=== PATIENT | female | born 1960 | race Caucasian/White ===

== ENCOUNTER → 2024-01-02 10:12 | Outpatient (REF) | payer BC, SELFPAY | LOC: HWRAD 10:12 | PROVIDERS: ATTENDING PHYSICIAN Internal Medicine Endocrinology, Diabetes & Metabolism; FAMILY PHYSICIAN Nurse Practitioner Family | DX: E04.1 Nontoxic single thyroid nodule (principal) | CPT/HCPCS: 76536 ==

== ENCOUNTER → 2024-08-02 08:53 | Outpatient (REF) | payer BC, SELFPAY | LOC: HWWDC 08:53 | PROVIDERS: ATTENDING PHYSICIAN Internal Medicine Critical Care Medicine; FAMILY PHYSICIAN Nurse Practitioner Family | DX: Z12.31 Encounter for screening mammogram for malignant neoplasm of breast (principal); R05.3 Chronic cough (principal) | CPT/HCPCS: 71250; 77063; 77067 ==

== ENCOUNTER → 2024-11-16 09:01 | Outpatient (REF) | payer BC, SELFPAY | LOC: HWRAD 09:01 | PROVIDERS: ATTENDING PHYSICIAN Internal Medicine Endocrinology, Diabetes & Metabolism; FAMILY PHYSICIAN Nurse Practitioner Family | DX: E04.2 Nontoxic multinodular goiter (principal) | CPT/HCPCS: 76536 ==

== ENCOUNTER 2025-05-26 17:31 | Inpatient (IN) | payer BC, SELFPAY ==
[2025-05-26 12:51] VITALS: BP 129/93
[2025-05-26 13:26] LABS: Glucose - Point of Care 149 mg/dl (70-99)
--- NOTE | 2025-05-26 13:28 | ED.GENMED ---
History of Present Illness
General
Chief Complaint: Dehydration Symptoms
Source: patient
Exam Limitations: none
Time Seen by Provider: 05/26/25 13:17
History of Present Illness
History of Present Illness:
65yoF with a history of hyperlipidemia, hypothyroidism, and chronic cough presenting with her for evaluation of vomiting. Patient started Zepbound about 1.5 weeks ago for weight loss. She took her 2nd dose 3 days ago. She started with
nausea and vomiting yesterday and has been vomiting persistently since then. She has been unable to keep down any PO fluids/solids and feels very dehydrated. Patient is having some burning pain in her chest and feels short of breath. She started
to experience tingling in both of her arms when she arrived to the ED. She denies any fevers or diarrhea.
Phy Exam
Physical Exam
Physical Exam:
Hyperventilating, anxious
General Physical Exam
General Presentation: mild distress
General Skin: warm and dry
General Habitus: normal
General Mental: alert
ENT Exam
ENT Exam: normocephalic
Cardiovascular Exam
Cardiovascular Exam: tachycardia
Pulmonary Exam
Pulmonary Exam: lungs clear, no respiratory distress, no rales, no crackles, no rhonchi and no wheezing
Gastrointestinal Exam
Gastrointestinal Exam: non tender, soft and non distended
Neurological Exam
Neurological Exam: alert
[place] Coma Scale
Eye Opening: Spontaneous
Verbal Response: Oriented
Motor Response: Obeys Commands
GCS Total Score: 15
Skin Exam
Skin Exam: normal color and warm/dry
Psychiatric Exam
Psychiatric Exam: anxious
Course
Orders/Labs/Results
Orders:
Orders
05/26/25 13:26
Electrocardiogram (*1) Urgent
Reason for Study: Shortness of Breath
EKG- Treatment ONCE
0.9% Sodium Chloride 1000 ml [Nss] 1,000 ml IV BOLUS
Ondansetron Injectable [Zofran] 4 mg IV NOW STA
CR Chest - 2 Views Urgent
Comment:
Reason For Exam: SOB
05/26/25 13:48
Complete Blood Count/With Diff Urgent
Comprehensive Metabolic Panel Urgent
Lipase Urgent
Magnesium Urgent
Troponin I Urgent
Venous Blood Gas Urgent
%Oxygen/Room Air: room air
05/26/25 13:49
Lactate Level [Lactic Acid] Urgent
05/26/25 14:22
Prochlorperazine [Compazine] 10 mg IV NOW STA
05/26/25 14:39
0.9% Sodium Chloride 1000 ml [Nss] 1,000 ml IV BOLUS
Abnormal Lab Results
05/26/25 05/26/25 05/26/25
13:48 13:49
WBC 11.6 H 10^3/uL
(4.8-10.8)
Hgb 16.1 H g/dL
(12.0-16.0)
MPV 11.6 H fL
(7.4-10.4)
Absolute Neuts (auto) 9.4 H 10^3/uL
(1.4-6.5)
Absolute Lymphs (auto) 1.1 L 10^3/uL
(1.2-3.4)
Absolute Monos (auto) 0.9 H 10^3/uL
(0.1-0.6)
Neutrophils % 81.7 H %
(42.2-75.2)
Lymphocytes % 9.6 L %
(20.5-51.1)
VBG pCO2 20 L mmHg
(35-48)
VBG HCO3 11.6 L mmol/L
(22-27)
Carbon Dioxide 7 L* mmol/L
(22-30)
Creatinine 1.1 H mg/dL
(0.6-1.0)
Glucose 162 H mg/dl
(70-99)
Lactic Acid 3.6 H mmol/L
(0.7-2.0)
Calcium 11.8 H mg/dl
(8.4-10.2)
Total Protein 9.7 H g/dl
(6.3-8.2)
Albumin 6.0 H g/dl
(3.5-5.0)
POC Glucose 149 H mg/dl
(70-99)
05/26/25 13:48
05/26/25 13:48
Vital Signs
Initial and Last Documented VS:
Initial Vital Signs
Temp Pulse Resp BP Pulse Ox
98.2 F 133 20 129/93 99
05/26/25 12:51 05/26/25 12:51 05/26/25 12:51 05/26/25 12:51 05/26/25 12:51
Last Documented Vital Signs
Temp Pulse Resp BP Pulse Ox
98.2 F 110 23 157/94 99
05/26/25 12:51 05/26/25 14:35 05/26/25 14:30 05/26/25 14:10 05/26/25 13:30
MDM/Problems Addressed
Differential Diagnosis Includes:
65yoF here with vomiting x 24 hours. Recently started on Zepbound. HR 133 in triage and she is hyperventilating during initial exam. Abdominal exam is benign. Differential diagnosis includes but is not limited to: gastroenteritis, pancreatitis,
medication side effect, dehydration
Initial ED plan: Check abdominal labs, lactate, VBG, troponin/EKG, and CXR. IV Zofran and fluid bolus.
*Pulse Oximetry
SaO2: 99
Oxygen Mode of Delivery: Room air
Patient hypoxic: no (99%)
*EKG
Interpreted by ED Provider?: Yes
EKG Intrepretation Date: 05/26/25
Heart Rate: 109
Rate: tachycardiac
Rhythm: sinus
[place]: normal axis
Interval: normal interval
QRS Pattern: normal QRS
Ischemia: non-specific ST changes (inferolateral leads)
*Critical Care Note
Total Time (30-74mins, 75-104mins- exclusive of procedures): Not Applicable
Update Note
Update Note:
Labs reveal a severe metabolic acidosis with a bicarb of 7. Venous pH is normal. Lactate 3.6. EKG shows ST depressions in inferolateral leads although troponin is normal. Chest x-ray clear. Additional fluid bolus ordered and patient admitted
for further management.
ED Attending Note
-
Portions of this chart may have been created with voice recognition software.� Occasional wrong word or��sound alike� substitutions may have occurred due to the inherent limitations of voice recognition software.
Discharge Plan
Departure
Patient Disposition: Admit
Date of Disposition: 05/26/25
Time of Disposition: 14:56
Presentation/result/management discussed w/ accepting MD/DO: Hospitalist
Discharge Problem:
High anion gap metabolic acidosis, Nausea and vomiting
Prescriptions:
No Action
rosuvastatin 20 MG tablet
20 mg PO QPM
levothyroxine [Synthroid] 25 mcg Tablet
25 mcg PO DAILY
amitriptyline 10 mg Tablet
10 mg PO HS
gabapentin 300 mg Capsule
300 mg PO TID
Referrals:
Pasquale Escamilla CRNP [Family Provider, Family Practice]
Interventions
Interventions:
*Risk Screen - Suicide Last Done: 05/26/25 14:35
*General Assessment Last Done: 05/26/25 12:51
*Neglect/Abuse Screening Last Done: 05/26/25 14:35
*ED- Fall Risk Assessment Last Done: 05/26/25 14:35
*ED COVID-19 Vaccine History Last Done: 05/26/25 14:35
Discharge Date and Time
Print Language: CITIZEN OF [place]
[2025-05-26] MEDS: NSS 1000 IV ×2 (13:30→15:54)
[2025-05-26] MEDS: ZOFRAN 4 MG IV (13:50)
[2025-05-26 14:09] LABS: Hematocrit 46.5 % (37.0-47.0); Hemoglobin 16.1 g/dL (12.0-16.0); Mean Corp Hgb Conc. 34.6 g/dL (33.0-37.0); Mean Corpuscular Volume 86.4 fL (81.0-99.0); Nucleated Red Blood Cells % 0 %; Platelet Count 309 10^3/uL (130-400); Red Cell Dist. Width 14.0 % (11.5-14.5)
[2025-05-26 14:10] VITALS: BP 157/94
[2025-05-26 14:11] LABS: Venous Blood Gas B.E. -10.8 mmol/L (-4 to +4); Venous Blood Gas O2 Sat % 83.5 %
[2025-05-26] MEDS: COMPAZINE 10 MG IV (14:31)
[2025-05-26 14:33] VITALS: BMI 22.2
[2025-05-26 14:38] LABS: ALT (SGPT) 18 U/L (0-35); AST (SGOT) 21 U/L (14-36); Albumin 6.0 g/dl (3.5-5.0); Alkaline Phosphatase 94 U/L (38-126); Blood Urea Nitrogen 16 mg/dl (7-17); Calcium 11.8 mg/dl (8.4-10.2); Carbon Dioxide 7 mmol/L (22-30); Chloride 105 mmol/L (98-107); Estimated Creatinine Clearance 41 ml/min; Glucose 162 mg/dl (70-99); Lipase 223 U/L (23-300); Magnesium 2.1 mg/dl (1.6-2.3); Potassium 4.4 mmol/L (3.5-5.1); Sodium 145 mmol/L (135-145); Total Protein 9.7 g/dl (6.3-8.2); eGFR 56.11
[2025-05-26 14:39] LABS: Troponin I < 0.012 ng/ml
--- NOTE | 2025-05-26 15:47 | HPS.HSE ---
Addendum entered and electronically signed by Kate Oliveira MD 05/26/25 16:39:
Results of arterial blood gas reviewed--by way of the Espinosa Hesselbach equation, expected pH should be 7.09--therefore, volume contraction with metabolic alkalosis fits the picture as measured arterial pH is 7.34
Original Note:
Family Physician
-
Family Physician: LITZY Castellon
Chief Complaint
-
Nausea and vomiting
History of Present Illness
Patient is a 65-year-old female who comes to the emergency room with complaints of being 'dehydrated'. She had previously been on Zepbound 2.5 mg for 8 weeks for weight loss without any issues. She then got changed to 5 mg and had her second dose
of the 5 mg on this past , May 23, 2025. She stated that on Tuesday she started with some nausea and mild vomiting but then all day Tuesday had significant nausea, vomiting but no diarrhea. She became dizzy when she tried to get up and
also developed muscle cramps. She admits to chills but no fevers. She denies any diarrhea. She denies any abdominal pain. She denies any alcohol intake. Workup found her to be profoundly acidotic with a bicarbonate of 7 and anion gap of 33 with
elevated calcium of 11.8 and lactic acidosis of 3.6. Etiology of her acidosis is unclear. Patient is being admitted.
Medical History
Past Medical History
Past Medical History: Reports Other
Additional Past Medical History:
Hyperlipidemia
Hypothyroid with thyroid nodule
Chronic cough
Past Surgical History: Reports None
Social History
Tobacco: Non-smoker
Alcohol: None
Drug: None
Personal:
Living: With Family
Family History
Family History: Not pertinent
Allergies / Home Medications
Allergies reflects when Allergies were last updated in [facility].
Home Medications with original date entered in [facility]
Allergy/Medication List:
Allergies
Allergy/AdvReac Type Severity Reaction Status Date / Time
No Known Allergies Allergy Verified 05/26/25 12:51
Home Medications
rosuvastatin 20 mg tablet 20 mg PO QPM 06/08/21
amitriptyline 10 mg tablet 10 mg PO HS 05/26/25
gabapentin 300 mg capsule 300 mg PO TID 05/26/25
levothyroxine 25 mcg tablet (Synthroid) 25 mcg PO DAILY 05/26/25
Review of Systems
-
History Source: Patient
Constitutional: Reports Chills; Denies Fever
EENT: Reports No Symptoms
Respiratory: Reports Cough (Chronic cough which is much improved with amitriptyline and gabapentin)
Cardiac: Reports Chest Pain (Describes as a burning pain in the center of her chest nonradiating)
Abdomen/GI: Reports Nausea, Vomiting, Constipated and Other (No hematemesis); Denies Abdominal Pain, Diarrhea or Bloody Stools
: Reports No Symptoms and Other (She thought that her urine output was decreased)
Musculoskeletal: Reports Muscle Pain
Skin: Reports No Symptoms
Neurological: Reports Dizzy (With getting up)
Endocrine: Reports No Symptoms
Hematologic/Lymphatic: Reports No Symptoms
Psych: Reports No Symptoms
Physical Exam
Vital Signs
Vital Signs
Temp Pulse Resp BP Pulse Ox
98.2 F 110 23 157/94 99
05/26/25 12:51 05/26/25 14:35 05/26/25 14:30 05/26/25 14:10 05/26/25 13:30
Physical Exam
General: Well Developed and Well Nourished; No No Apparent Distress (Appears pale and acutely ill--having nausea and dry heaves)
HEENT: NormoCephalic, Anicteric and Atraumatic; No Oxygen
Respiratory: Clear; No Wheezes, Rales, Rhonchi or Crackles
Cardiac: S1/S2, Regular Rhythm and Tachycardia
GI: Soft, Non Tender, Non Distended and Normal Bowel Sounds
Musculoskeletal: No Clubbing, No Cyanosis and No Edema
Skin: Warm
Neuro: Awake, Alert and Nonfocal/grossly intact
Psych: Calm
Laboratory Results
-
05/26/25 13:48
05/26/25 13:48
Laboratory Results
Lactic Acid 3.6 mmol/L (0.7-2.0) H 05/26/25 13:49
Total Bilirubin 1.1 mg/dl (0.2-1.3) 05/26/25 13:48
AST 21 U/L (14-36) 05/26/25 13:48
ALT 18 U/L (0-35) 05/26/25 13:48
Alkaline Phosphatase 94 U/L (38-126) 05/26/25 13:48
Troponin I < 0.012 ng/ml 05/26/25 13:48
Lipase 223 U/L (23-300) 05/26/25 13:48
Impression/Plan
-
Patient is a 65-year-old female
Nausea/vomiting--nausea and vomiting could certainly be due to the increased dose of Zepbound--in addition, patient should be alkalotic due to volume contraction from vomiting HCl alejandro without diarrhea--ADMIT--continue IV fluids with bicarb, PPI,
antiemetics--will check lipase although patient does not complain of significant abdominal pain
Anion gap metabolic acidosis--anion gap 33--Zepbound can cause euglycemic starvation ketoacidosis--venous blood gas of no utility--will obtain arterial blood gas--patient denies any ingestions and does not drink alcohol, patient states she take
Zepbound for weight loss and not diabetes, no obvious source of infection to point toward sepsis--will check urine and serum osmolality, will check serum salicylates, acetaminophen levels, beta hydroxybutyrate and urine ketones
Hypercalcemia/elevated total protein--may certainly be a function of dehydration although creatinine is not significantly elevated and BUN is normal--will hydrate and reevaluate--consideration for multiple myeloma if numbers do not improve
Hyperlipidemia--hold rosuvastatin secondary to vomiting
Hypothyroid with thyroid nodules--check TSH with free T4
Chronic cough--patient states she is prescribed amitriptyline and gabapentin for this which has worked--unclear what the diagnosis is--she denies reflux--hold meds due to NPO status
DVT proph--SC lovenox
CODE STATUS--full code
[2025-05-26 16:00] VITALS: BP 140/77
[2025-05-26 16:21] LABS: B.E. -10.8 mmol/L; O2 Saturation % 98.8 % (94-98); PCO2 24 mmHg (32-35); PO2 104 mmHg (83-108)
[2025-05-26 16:22] LABS: HCO3 12.9 mmol/L (21-28)
[2025-05-26 16:51] LABS: Acetaminophen < 10 ug/ml (10-30); Salicylate < 1.0 mg/dl (2.0-20.0)
[2025-05-26 17:08] LABS: Urine Character Slightly Cloudy (Clear)
[2025-05-26 17:14] LABS: Urine Squamous Cell 26-30 /LPF (Few)
[2025-05-26 17:15] LABS: Urine White Cell 30-40 /HPF (0-5)
[2025-05-26 17:16] LABS: TSH 1.36 uIU/ml (0.47-4.68)
[2025-05-26 17:47] VITALS: BP 147/85
[2025-05-26 17:48] VITALS: BMI 22.3
[2025-05-26 18:38] LABS: Glucose - Point of Care 115 mg/dl (70-99)
[2025-05-26] MEDS: NSS (PRESERVATIVE FREE) 10 ML IV (18:46)
[2025-05-26] MEDS: PROTONIX IV 40 MG IV (18:47)
[2025-05-26] MEDS: SODIUM BICARBONATE 1150 MEQ IV (18:57)
[2025-05-26 19:44] VITALS: BP 121/78
[2025-05-26] MEDS: LOVENOX 40 MG SC (20:16)
[2025-05-26 23:33] VITALS: BP 118/79
[2025-05-26 23:44] LABS: Glucose - Point of Care 106 mg/dl (70-99)
[2025-05-27] MEDS: BENADRYL 25 MG IV (00:02)
[2025-05-27] MEDS: ANESTHETIC LOZENGE 1 LOZENGE PO (01:15)
[2025-05-27 03:26] VITALS: BP 136/80
[2025-05-27 05:53] LABS: Glucose - Point of Care 106 mg/dl (70-99)
[2025-05-27 07:41] LABS: Hematocrit 38.2 % (37.0-47.0); Hemoglobin 13.1 g/dL (12.0-16.0); Mean Corp Hgb Conc. 34.3 g/dL (33.0-37.0); Mean Corpuscular Volume 86.6 fL (81.0-99.0); Nucleated Red Blood Cells % 0 %; Platelet Count 215 10^3/uL (130-400); Red Cell Dist. Width 14.2 % (11.5-14.5)
[2025-05-27] MEDS: PROTONIX IV 40 MG IV (07:41)
[2025-05-27] MEDS: NSS (PRESERVATIVE FREE) 10 ML IV (07:41)
[2025-05-27 07:45] VITALS: BP 121/71
[2025-05-27 07:57] LABS: Glycohemoglobin (HgbA1c) 5.3 % (4.0-5.6)
[2025-05-27] MEDS: ZOFRAN 4 MG IV ×3 (09:45→23:53)
[2025-05-27 11:01] VITALS: BP 124/68
[2025-05-27] MEDS: SODIUM BICARBONATE 1150 MEQ IV (11:15)
[2025-05-27 11:21] LABS: ALT (SGPT) 14 U/L (0-35); AST (SGOT) 18 U/L (14-36); Albumin 4.4 g/dl (3.5-5.0); Alkaline Phosphatase 67 U/L (38-126); Blood Urea Nitrogen 16 mg/dl (7-17); Calcium 10.1 mg/dl (8.4-10.2); Chloride 113 mmol/L (98-107); Estimated Creatinine Clearance 75 ml/min; Glucose 110 mg/dl (70-99); Magnesium 2.1 mg/dl (1.6-2.3); Potassium 3.4 mmol/L (3.5-5.1); Sodium 141 mmol/L (135-145); Total Protein 6.9 g/dl (6.3-8.2); eGFR > 60.00
[2025-05-27 11:23] LABS: Carbon Dioxide 13 mmol/L (22-30)
[2025-05-27 11:41] LABS: Glucose - Point of Care 92 mg/dl (70-99)
--- NOTE | 2025-05-27 14:41 | CM ---
Patient seen at bedside on with physicians and patient . Patient states that she lives with her in a condo with an elevator to access. Patient stated that her PCP is Dr. Escamilla and Patient uses the [facility] in
[place]. Patient stated that she does not have any DME and that she does not have any other needs that she anticipates. Patient plan is for discharge home with no needs at this time. CM will continue to follow for discharge planning needs.
Plan; home with family supports.
--- NOTE | 2025-05-27 15:04 | W.PN.HOSP.TC ---
Addendum entered and electronically signed by Kate Oliveira MD 05/27/25 17:04:
I saw and evaluated the patient independently. I reviewed the resident�s note and agree with findings and plan as documented by Dr. Fernandes.
GENERAL: well developed, well nourished, female in no apparent distress--looks better than admission
HEENT: NC/AT
HEART: regular rate and rhythm, +S1, +S2
LUNGS : clear to auscultation bilaterally
ABDOM: soft, nontender, nondistended, + bowel sounds
EXT: no cyanosis, clubbing, or edema
NEUROLOGIC: grossly intact
Nausea/vomiting--likely due to the increased dose of Zepbound--in addition, patient should be alkalotic due to volume contraction from vomiting HCl alejandro without diarrhea--continue IV fluids with bicarb, PPI, antiemetics--lipase WNL --advance diet to
clears
Anion gap metabolic acidosis--anion gap 33 now down to 15--Zepbound can cause euglycemic starvation ketoacidosis plus lactic acidosis also present-- arterial blood gas indicates resp alkalosis and pt with mixed acid base disorder (met acidosis, resp
alk, met alk)-- takes Zepbound for weight loss and not diabetes, no obvious source of infection to point toward sepsis-- salicylate acetaminophen levels negative, beta hydroxybutyrate and urine ketones both positive--cont IVF with bicarb--lactic
acid within normal limits
Hypercalcemia/elevated total protein--may certainly be a function of dehydration although creatinine is not significantly elevated and BUN is normal--will hydrate and reevaluate--calcium much improved
hypokalemia--replete
Hyperlipidemia--hold rosuvastatin secondary to vomiting
Hypothyroid with thyroid nodules-- TSH with free T4 WNL
Chronic cough--patient states she is prescribed amitriptyline and gabapentin for this which has worked---restart meds
DVT proph--SC lovenox
CODE STATUS--full code
Original Note:
Today's Communication/Plan
-
Restarted gabapentin 300mg TID
Restarted amitriptyline 10mg
Start clear liquid diet
Assessment / Plan
Assessment / Plan
Patient is a 65-year-old female with a history of hyperlipidemia, hypothyroidism with a thyroid nodule, and chronic cough who presented with emesis, nausea, and dizziness and found to have a mixed metabolic acidosis with metabolic alkalosis and
respiratory alkalosis. She had previously been on Zepbound 2.5 mg for 8 weeks for weight loss without any issues. She then got changed to 5 mg and had her second dose of the 5 mg on this past 05/23/25.
#Emesis
#Metabolic acidosis with metabolic alkalosis and compensatory respiratory alkalosis
anion gap 33
Zepbound can cause euglycemic starvation ketoacidosis
Emesis leads to metabolic alkalosis
Labs show compensatory respiratory alkalosis
Negative salicylates
acetaminophen wnl
UA significant for ketonuria
IVF
clear liquid diet
ppi
Zofran PRN
#Hypercalcemia resolved
initially elevated but trended down
#Hyperlipidemia
Crestor on hold
#Hypothyroid
TSH 1.3 wnl
T41.7 wnl
home med levothyroxine 25ug QD on hold
#Chronic cough
Restart amitriptyline 10mg
Restart gabapentin 300mg TID
GI PPx
Protonix IV
DVT ppx
SCD
Lovenox
CODE STATUS
Full code
Anticipated Discharge: > 48 hours
Subjective/Interval History
-
Patient is feeling better today. She does still have episodes of nausea such as this AM when she was using an ice ship. However did not have episodes of emesis. Still reports a burning sensation in her throat not alleviated by lozenges.
Date of Service: May 27, 2025
Objective Data
-
Labs:
Laboratory Results
05/27/25
06:40
WBC 8.2
Hgb 13.1
Hct 38.2
Plt Count 215 D
Sodium 141
Potassium 3.4 L
Chloride 113 H
Carbon Dioxide 13 L*
BUN 16
Creatinine 0.6
Glucose 110 H
Calcium 10.1
Total Bilirubin 0.8
AST 18
ALT 14
Alkaline Phosphatase 67
Vital Signs:
Vital Signs
Temp Pulse Resp BP Pulse Ox
98.6 F 95 16 124/68 96
05/27/25 11:01 05/27/25 11:01 05/27/25 11:01 05/27/25 11:01 05/27/25 11:01
I&O
05/26/25 05/27/25 05/28/25
06:59 06:59 06:59
Intake Total 0 / 0 600 / 600
Balance 0 / 0 600 / 600
Review of Systems
-
History Source: Patient
Constitutional: Reports No Symptoms; Denies Fever
EENT: Reports No Symptoms Reported
Respiratory: Reports No Symptoms; Denies Cough or Hemoptysis
Cardiac: Reports No Symptoms; Denies Chest Pain or Diaphoresis
Abdomen/GI: Reports Nausea; Denies Abdominal Pain, Vomiting or Diarrhea
Genitourinary: Reports No Symptoms
Skin: Reports No Symptoms and Rash
Neuro: Reports No Symptoms; Denies Dizzy or Lightheadedness
Physical Exam
-
General: Well Developed, Well Nourished and Comfortable
HEENT: Normocephalic and Atraumatic
Respiratory: Clear to Auscultation; Negative Wheezes or Rales
Cardiac: Regular Rhythm and S1/S2; Negative Murmur
GI: Soft, Nontender and Nondistended
Musculoskeletal: No Clubbing and No Edema
Neuro: Awake, Alert and Oriented
[2025-05-27 15:20] VITALS: BP 135/73
[2025-05-27] MEDS: NEURONTIN PO ×3 (15:28→22:42)
[2025-05-27 16:36] LABS: Glucose - Point of Care 92 mg/dl (70-99)
[2025-05-27] MEDS: LOVENOX 40 MG SC (17:12)
[2025-05-27] MEDS: TORADOL 15 MG IV (18:34)
[2025-05-27 19:00] VITALS: BP 116/64
[2025-05-27] MEDS: KCL 520 MEQ IV (19:54)
[2025-05-27] MEDS: ELAVIL PO ×2 (22:33→23:58)
[2025-05-27 23:05] VITALS: BP 111/64
[2025-05-27 23:53] LABS: Glucose - Point of Care 88 mg/dl (70-99)
[2025-05-28] MEDS: SODIUM BICARBONATE 1150 MEQ IV (02:21)
[2025-05-28 03:34] VITALS: BP 109/59
[2025-05-28 07:00] VITALS: BP 121/66
[2025-05-28 07:52] LABS: Hematocrit 31.4 % (37.0-47.0); Hemoglobin 10.8 g/dL (12.0-16.0); Mean Corp Hgb Conc. 34.4 g/dL (33.0-37.0); Mean Corpuscular Volume 87.0 fL (81.0-99.0); Platelet Count 175 10^3/uL (130-400); Red Cell Dist. Width 14.1 % (11.5-14.5)
[2025-05-28 07:53] LABS: Glucose - Point of Care 91 mg/dl (70-99)
[2025-05-28] MEDS: NEURONTIN PO (08:18)
[2025-05-28] MEDS: PROTONIX IV 40 MG IV (08:23)
[2025-05-28] MEDS: NSS (PRESERVATIVE FREE) 10 ML IV (08:23)
[2025-05-28 08:26] LABS: Blood Urea Nitrogen 16 mg/dl (7-17); Calcium 8.9 mg/dl (8.4-10.2); Carbon Dioxide 28 mmol/L (22-30); Chloride 103 mmol/L (98-107); Estimated Creatinine Clearance 75 ml/min; Glucose 88 mg/dl (70-99); Potassium 2.8 mmol/L (3.5-5.1); Sodium 141 mmol/L (135-145); eGFR > 60.00
[2025-05-28] MEDS: KCL 270 MEQ IV ×2 (09:04→16:26)
--- NOTE | 2025-05-28 09:43 | W.PN.HOSP.TC ---
Addendum entered and electronically signed by Kate Oliveira MD 05/28/25 17:06:
I saw and evaluated the patient independently. I reviewed the resident�s note and agree with findings and plan as documented by Dr. Fernandes.
GENERAL: well developed, well nourished, female in no apparent distress--looks better than admission
HEENT: NC/AT
HEART: regular rate and rhythm, +S1, +S2
LUNGS : clear to auscultation bilaterally
ABDOM: soft, nontender, nondistended, + bowel sounds
EXT: no cyanosis, clubbing, or edema
NEUROLOGIC: grossly intact
Nausea/vomiting--likely due to the increased dose of Zepbound--in addition, patient should be alkalotic due to volume contraction from vomiting HCl alejandro without diarrhea--change IV fluids to LR, cont PPI, antiemetics--lipase WNL --advance diet to
clears (not tolerating)--tried IV ativan dose of 0.5mg without improvement--will consult GI
Anion gap metabolic acidosis--anion gap 33,down to 15, now down to 10 (resolved)--Zepbound can cause euglycemic starvation ketoacidosis plus lactic acidosis also present and resolved-- arterial blood gas indicates resp alkalosis and pt with mixed
acid base disorder (met acidosis, resp alk, met alk)-- takes Zepbound for weight loss and not diabetes, no obvious source of infection to point toward sepsis-- salicylate acetaminophen levels negative, beta hydroxybutyrate and urine ketones both
positive
JOHN--although creat not terribly elevated on admission (1.1), she has decreased down to 0.6 which meets criteria--likely due to volume depletion from vomiting
Hypercalcemia/elevated total protein--may certainly be a function of dehydration although creatinine is not significantly elevated and BUN is normal--will hydrate and reevaluate--calcium much improved
hypokalemia--replete
Hyperlipidemia--hold rosuvastatin secondary to vomiting
Hypothyroid with thyroid nodules-- TSH with free T4 WNL
Chronic cough--patient states she is prescribed amitriptyline and gabapentin for laryngeal GERD which has worked---restarted meds but pt unable to take
DVT proph--SC lovenox
CODE STATUS--full code
Original Note:
Today's Communication/Plan
-
repleted K
recheck BMP
Changed IVF to LR
Assessment / Plan
Assessment / Plan
Patient is a 65-year-old female with a history of hyperlipidemia, hypothyroidism with a thyroid nodule, and chronic cough who presented with emesis, nausea, and dizziness and found to have a mixed metabolic acidosis with metabolic alkalosis and
respiratory alkalosis. She had previously been on Zepbound 2.5 mg for 8 weeks for weight loss without any issues. She then got changed to 5 mg and had her second dose of the 5 mg on this past 05/23/25.
#Emesis
#Metabolic acidosis with metabolic alkalosis and compensatory respiratory alkalosis
anion gap 33--15--10
Zepbound can cause euglycemic starvation ketoacidosis
Emesis leads to metabolic alkalosis
Labs show compensatory respiratory alkalosis
Negative salicylates
acetaminophen wnl
UA significant for ketonuria
IVF NS plus
clear liquid diet
ppi
Zofran PRN
#Hypokalemia
dropped to 2.8 on 05/28
no chest pain, palpitations, no arrhythmia on tele
K repletion
plan to recheck BMP
#Headache
holocephalic, responsive to medications, not a coffee drinker
toradol prn
#Hypercalcemia resolved
initially elevated but trended down
#Hyperlipidemia
Crestor on hold
#Hypothyroid
TSH 1.3 wnl
T41.7 wnl
home med levothyroxine 25ug QD on hold
#Chronic cough
amitriptyline 10mg
gabapentin 300mg TID
GI PPx
Protonix IV
DVT ppx
SCD
Lovenox
CODE STATUS
Full code
Anticipated Discharge: 24 - 48 hours
Subjective/Interval History
-
Patient seen at bedside today. She did not sleep well yesterday. Had a headache yesterday relieved by Toradol. Headache is around the whole head, both temples. Usually has headaches like this when tired. She reports slight improvement in nausea
after Zofran but nausea returns when she drinks sip of water. Was unable to take any PO meds yesterday. Will try liquid diet again today. Reports no chest pain or palpitations, or shortness of breath.
Date of Service: May 28, 2025
Objective Data
-
Labs:
Laboratory Results
05/28/25 05/28/25
07:20 13:00
WBC 5.6
Hgb 10.8 L
Hct 31.4 L
Plt Count 175
Sodium 141 Pending
Potassium 2.8 L Pending
Chloride 103 Pending
Carbon Dioxide 28 Pending
BUN 16 Pending
Creatinine 0.6 Pending
Glucose 88 Pending
Calcium 8.9 Pending
Vital Signs:
Vital Signs
Temp Pulse Resp BP Pulse Ox
98.4 F 74 16 121/66 95
05/28/25 07:00 05/28/25 07:00 05/28/25 07:00 05/28/25 07:00 05/28/25 08:30
I&O
05/27/25 05/28/25 05/29/25
06:59 06:59 06:59
Intake Total 0 / 0 1919
Balance 0 / 0 1919
Review of Systems
-
History Source: Patient
Constitutional: Reports No Symptoms and No Appetite; Denies Fever
EENT: Reports Sore Throat
Respiratory: Reports Cough; Denies Trouble Breathing or Wheezing
Cardiac: Reports No Symptoms; Denies Chest Pain or Palpitations
Abdomen/GI: Reports Nausea; Denies Abdominal Pain, Vomiting or Diarrhea
Musculoskeletal: Reports No Symptoms
Skin: Reports No Symptoms; Denies Itching or Rash
Neuro: Reports Headache; Denies Dizzy
Physical Exam
-
General: Well Developed, Well Nourished and No Apparent Distress
HEENT: Normocephalic and Atraumatic
Respiratory: Clear to Auscultation; Negative Wheezes or Crackles
Cardiac: Regular Rhythm and S1/S2; Negative Murmur
GI: Soft, Nontender, Nondistended and Normal Bowel Sounds
Musculoskeletal: No Clubbing, No Cyanosis and No Edema
Skin: Warm and Dry
Neuro: Awake, Alert and Oriented
[2025-05-28 11:00] VITALS: BP 117/66
[2025-05-28 12:11] LABS: Glucose - Point of Care 87 mg/dl (70-99)
[2025-05-28] MEDS: SODIUM BICARBONATE IV (12:18)
--- NOTE | 2025-05-28 12:56 | PN.CDI ---
CDI
- -
CDI:
Physician Documentation Request
Admit Date: 05/26/25 17:31
Dear Doctor,
Please review the following and provide your response in the progress notes.
Clinical Indicators:
Pt admitted with Nausea/vomiting--likely due to the increased dose of Zepbound, and Anion gap metabolic acidosis.
Laboratory Tests
05/26/25 05/27/25 05/28/25
13:48 06:40 07:20
Creatinine 1.1 H 0.6 0.6
Clarify which of the following accurately represents the patient's renal status:
Acute kidney injury - see criteria
Insignificant abnormal lab value
Other
Criteria for JOHN*
1 Increase in serum creatinine by > or = to 0.3 mg/dL (> or = to 26.5 micromol/L) within 48 hours, OR
2 Increase in serum creatinine to > or = to 1.5 times baseline, which is known or presumed to have occurred within 7 days, OR
3 Urine volume < 0.5 nL/kg/hour for six hours
Use of terms such as suspected, likely, concern for, or probable (associated with a specific diagnosis that is being evaluated, monitored, or treated as if it exists) are acceptable and can be coded in the inpatient setting, when documented at the
time of discharge.
Thank you,
Cassandra Sanchez RN, BSN
CDI Specialist
[place] [employer]
Please use your independent medical judgment in providing your response.
*Source: Kidney Disease: Improving Global Outcomes (KDIGO) 2012
[2025-05-28] MEDS: NSS (PRESERVATIVE FREE) 0.25 ML IV (13:16)
[2025-05-28] MEDS: ATIVAN 0.5 MG IV (13:16)
[2025-05-28] MEDS: LR 1000 IV (14:52)
[2025-05-28 15:00] VITALS: BP 119/69
[2025-05-28 15:08] LABS: Blood Urea Nitrogen 14 mg/dl (7-17); Calcium 9.2 mg/dl (8.4-10.2); Carbon Dioxide 30 mmol/L (22-30); Chloride 105 mmol/L (98-107); Estimated Creatinine Clearance 75 ml/min; Glucose 85 mg/dl (70-99); Potassium 3.5 mmol/L (3.5-5.1); Sodium 141 mmol/L (135-145); eGFR > 60.00
--- NOTE | 2025-05-28 15:22 | CM ---
Patient seen at bedside with physicians on . Patient complained of continued nausea. CM will continue to follow for discharge planning needs.
Plan; home with family watch for home VN needs.
[2025-05-28] MEDS: NEURONTIN 300 MG PO ×2 (16:28→22:14)
[2025-05-28 16:30] LABS: Glucose - Point of Care 80 mg/dl (70-99)
[2025-05-28] MEDS: LOVENOX 40 MG SC (17:52)
[2025-05-28 19:44] VITALS: BP 133/86
[2025-05-28 21:05] LABS: Glucose - Point of Care 78 mg/dl (70-99)
[2025-05-28] MEDS: ELAVIL 10 MG PO (22:14)
[2025-05-28 23:31] VITALS: BP 129/72
[2025-05-29 03:09] VITALS: BP 116/65
[2025-05-29] MEDS: LR 1000 IV (04:17)
[2025-05-29 07:29] LABS: Glucose - Point of Care 74 mg/dl (70-99)
[2025-05-29 07:43] LABS: Hematocrit 35.3 % (37.0-47.0); Hemoglobin 12.1 g/dL (12.0-16.0); Mean Corp Hgb Conc. 34.3 g/dL (33.0-37.0); Mean Corpuscular Volume 88.0 fL (81.0-99.0); Platelet Count 179 10^3/uL (130-400); Red Cell Dist. Width 13.6 % (11.5-14.5)
[2025-05-29] MEDS: NSS (PRESERVATIVE FREE) 10 ML IV (07:44)
[2025-05-29] MEDS: PROTONIX IV 40 MG IV (07:44)
[2025-05-29] MEDS: NEURONTIN 300 MG PO (07:44)
[2025-05-29 08:18] LABS: Blood Urea Nitrogen 10 mg/dl (7-17); Calcium 9.4 mg/dl (8.4-10.2); Carbon Dioxide 22 mmol/L (22-30); Chloride 105 mmol/L (98-107); Estimated Creatinine Clearance 75 ml/min; Glucose 81 mg/dl (70-99); Potassium 3.6 mmol/L (3.5-5.1); Sodium 137 mmol/L (135-145); eGFR > 60.00
[2025-05-29 08:41] VITALS: BP 123/67
--- NOTE | 2025-05-29 08:57 | CON.GI ---
Addendum entered and electronically signed by Yudi Charles MD 05/29/25 12:23:
I saw and examined the patient.
The residents note was reviewed and I agree with the note.
Comment:
Pt is a 65 y/o woman who was uptitrating zepbound for weight loss and on dose escalation started having nausea, vomiting and worsening of gerd. She was admitted with acidosis. Already feeling better.
abd: soft nontender
impression
N/V improving
hx of gerd
plan:
stop zepbound likely an effect of this med
zofran
PPI
if remains symptomatic can check abdominal u/s to r/o biliary pathology (lipase normal)
if u/s negative the zepbound effect will likely take 4-6 weeks to fully resolve, d/w pt
diet as tolerated
Original Note:
Consultation
-
Date/Time Consultation Requested: 05/28/2025
Date/Time Consultation Performed: 05/29/2025
Requesting Provider: Xiomara Fernandes
Performing Provider: Emilia Charles Shahzadi, Sandal
Reason for Consultation: GERD/emesis
Medical History
Chief Complaint / HPI
Chief Complaint: Nausea and dehydration
History of Present Illness:
Ms. Hayward is a 65-year-old female, with past medical history significant for hyperlipidemia, hypothyroidism with thyroid nodule, chronic cough, and GERD who had been using Zepbound for weight loss. Initially she was also on 2.5 mg dose for 8 weeks
which she tolerated well, but she plateaued and called to increase the dose, she took first dose of 5 mg without any issues but after receiving the second dose on May 23, 2025 she started to feel nauseated. She lost her appetite, the last meal she
ate was on Tuesday which was cottage cheese. After that, she did not had any appetite and felt nauseated and had multiple episodes of vomiting. Patient vomited all day on Tuesday and was not able to keep anything down. The next day, she felt
very weak, tired, and was feeling dizzy whenever she tried to get up along with body aches and pains. She denied any diarrhea and states that her last bowel movement was on Tuesday.
She denies any fever or abdominal pain. She came to the ER and was found to be acidotic and dehydrated.She had an anion gap metabolic acidosis with a anion gap of 33 in the ER, she tested positive for beta-hydroxybutyrate and urinary ketones. She
had volume contraction with metabolic alkalosis and was treated with IV fluids and bicarb infusion. She denied any alcohol use, she is not diabetic and she takes For Weight Loss. In addition, she also has lactic acidosis most likely secondary to
starvation.
At the time of evaluation today, she denied any nausea, vomiting, abdominal pain and has been tolerating clear liquids well.
Past Medical History
Past Medical History: GERD, Hypercholesterolemia, Hypothyroidism (Hypothyroid with thyroid nodule) and Other (Chronic cough)
Past Surgical History: None
Social History
Tobacco: Non-Smoker
Alcohol: None
Drug: None
Personal:
Living: With Family
Family History
Family History: Reviewed & Not Pertinent
Allergies / Home Medications
Allergy/AdvReac Type Severity Reaction Status Date / Time
No Known Allergies Allergy Verified 05/26/25 12:51
�Medication �Instructions �Recorded
rosuvastatin 20 mg tablet 20 mg PO QPM High Cholesterol 06/08/21
amitriptyline 10 mg tablet 10 mg PO HS Sleep 05/26/25
gabapentin 300 mg capsule 300 mg PO TID Neurological 05/26/25
Condition
levothyroxine 25 mcg tablet 25 mcg PO DAILY Thyroid 05/26/25
(Synthroid)
Review of Systems
-
All other systems: A 12 pt ROS was Negative except as stated above in HPI
Vital Signs
Temp Pulse Resp BP Pulse Ox
98.5 F 76 16 123/67 96
05/29/25 08:41 05/29/25 08:41 05/29/25 08:41 05/29/25 08:41 05/29/25 08:41
Physical Exam
Exam
General: Well Developed, No Apparent Distress and Comfortable
HEENT: Anicteric and Moist Mucous Membranes
Respiratory: Clear; Negative Wheezes, Rales or Rhonchi
Cardiac: S1/S2 and Regular Rhythm; Negative Murmur or Rub
GI: Soft, Non Tender, Non Distended and Normal Bowel Sounds
Musculoskeletal: No Clubbing, No Cyanosis and No Edema
Skin: Warm and Dry
Neuro: Awake, AO x 3 and Nonfocal/Grossly Intact
Psych: Calm
Results
WBC 6.3 10^3/uL (4.8-10.8) 05/29/25 06:45
Hgb 12.1 g/dL (12.0-16.0) 05/29/25 06:45
Hct 35.3 % (37.0-47.0) L 05/29/25 06:45
MCV 88.0 fL (81.0-99.0) 05/29/25 06:45
Plt Count 179 10^3/uL (130-400) 05/29/25 06:45
Absolute Neuts (auto) 5.9 10^3/uL (1.4-6.5) 05/27/25 06:40
Sodium 137 mmol/L (135-145) 05/29/25 06:45
Potassium 3.6 mmol/L (3.5-5.1) 05/29/25 06:45
Chloride 105 mmol/L (98-107) 05/29/25 06:45
Carbon Dioxide 22 mmol/L (22-30) 05/29/25 06:45
BUN 10 mg/dl (7-17) 05/29/25 06:45
Creatinine 0.5 mg/dL (0.6-1.0) L 05/29/25 06:45
Calcium 9.4 mg/dl (8.4-10.2) 05/29/25 06:45
Total Bilirubin 0.8 mg/dl (0.2-1.3) 05/27/25 06:40
AST 18 U/L (14-36) 05/27/25 06:40
ALT 14 U/L (0-35) 05/27/25 06:40
Alkaline Phosphatase 67 U/L (38-126) 05/27/25 06:40
Lipase 223 U/L (23-300) 05/26/25 13:48
Diagnostic Image Results:
Chest xray 05/29/2025
IMPRESSION:
No acute cardiopulmonary process.
Prior GI Procedures:
EGD: None
Colonoscopy: None
Assessment / Plan
-
Impression
Patient is a 65-year-old female, who is on Zepbound for weight loss. Admitted for management of anion gap metabolic acidosis secondary to starvation. GI consulted for excessive nausea and vomiting.
Assessment/Plan
#Gastroparesis secondary to Zepbound
Symptoms began after increased dose of Zepbound
Patient tolerating clear liquid diet
Denies any nausea, vomiting or abdominal pain
Reviewed the pathophysiology of her disease process with her including mechanism of action of zepbound,and side effect profile of medication
Also reviewed, the timeline of recovery from gastroparesis secondary to zepbound.
Expect 2 months for complete recovery of GI function, no antidote available
Advised to discontinue the medication
Patient has been tolerating clear liquid well, can advance diet to full liquids with antiemetics and supportive care
Patient symptomatically stable
Liver function normal, electrolytes normal
Continue symptomatic management and supportive care
GI will sign off
Please call if you have any further questions
DVT prophylaxis-enoxaparin
CODE STATUS-full code
-
-
Thank you for consultation and allowing me to participate in the patient's care. Please call the radiation engineer GI physician during the after hours with any questions or concerns.
[2025-05-29 11:30] VITALS: BP 115/64
[2025-05-29 11:41] LABS: Glucose - Point of Care 85 mg/dl (70-99)
--- NOTE | 2025-05-29 14:43 | W.PN.HOSP.TC ---
Addendum entered and electronically signed by Kate Oliveira MD 05/29/25 15:31:
I saw and evaluated the patient independently. I reviewed the resident�s note and agree with findings and plan as documented by Dr. Fernandes.
GENERAL: well developed, well nourished, female in no apparent distress--looks better than admission--hungry and asking to eat
HEENT: NC/AT
HEART: regular rate and rhythm, +S1, +S2
LUNGS : clear to auscultation bilaterally
ABDOM: soft, nontender, nondistended, + bowel sounds
EXT: no cyanosis, clubbing, or edema
NEUROLOGIC: grossly intact
Nausea/vomiting--resolved--likely due to the increased dose of Zepbound-- cont PPI, antiemetics--lipase WNL --tolerating solid food--apprec GI
Anion gap metabolic acidosis--anion gap 33,down to 15, now down to 10 (resolved)--Zepbound can cause euglycemic starvation ketoacidosis plus lactic acidosis also present and resolved-- arterial blood gas indicates resp alkalosis and pt with mixed
acid base disorder (met acidosis, resp alk, met alk)-- takes Zepbound for weight loss and not diabetes, no obvious source of infection to point toward sepsis-- salicylate, acetaminophen levels negative, beta hydroxybutyrate and urine ketones both
positive
JOHN--although creat not terribly elevated on admission (1.1), she has decreased down to 0.6 which meets criteria--likely due to volume depletion from vomiting
Hypercalcemia/elevated total protein--may certainly be a function of dehydration although creatinine is not significantly elevated and BUN is normal--will hydrate and reevaluate--calcium much improved
hypokalemia--replete
Hyperlipidemia--hold rosuvastatin secondary to vomiting
Hypothyroid with thyroid nodules-- TSH with free T4 WNL
Chronic cough--patient states she is prescribed amitriptyline and gabapentin for laryngeal GERD which has worked---restarted meds but pt unable to take
DVT proph--SC lovenox
CODE STATUS--full code
ok for d/c
Original Note:
Today's Communication/Plan
-
pt medically stable for discharge
pt tolerating PO intake
Assessment / Plan
Assessment / Plan
Patient is a 65-year-old female with a history of hyperlipidemia, hypothyroidism with a thyroid nodule, and chronic cough who presented with emesis, nausea, and dizziness and found to have a mixed metabolic acidosis with metabolic alkalosis and
respiratory alkalosis. She had previously been on Zepbound 2.5 mg for 8 weeks for weight loss without any issues. She then got changed to 5 mg and had her second dose of the 5 mg on this past 05/23/25.
#Emesis
#Metabolic acidosis with metabolic alkalosis and compensatory respiratory alkalosis
anion gap 33--15--10
Zepbound can cause euglycemic starvation ketoacidosis
Emesis leads to metabolic alkalosis
Labs show compensatory respiratory alkalosis
Negative salicylates
acetaminophen wnl
UA significant for ketonuria
IVF
regular diet
ppi
Zofran PRN
GI consulted and appreciate recs
cont zofran prn
cont ppi prn
symptoms likely due to zepbound, may take 4-6weeks to resolve
if remains symptomatic can check abdominal u/s to r/o biliary pathology (lipase normal)
#Hypokalemia
dropped to 2.8 on 05/28
no chest pain, palpitations, no arrhythmia on tele
K repletion
recheck wnl
#JOHN resolved
pt basline 0.6
Cr elvated to 1.1 on presentation
resolved 05/27
#Headache
holocephalic, responsive to medications, not a coffee drinker
toradol prn
#Hypercalcemia resolved
initially elevated but trended down
#Hyperlipidemia
Crestor on hold
#Hypothyroid
TSH 1.3 wnl
T41.7 wnl
home med levothyroxine 25ug QD on hold
#Chronic cough
amitriptyline 10mg
gabapentin 300mg TID
GI PPx
Protonix IV
DVT ppx
SCD
Lovenox
CODE STATUS
Full code
Anticipated Discharge: Today
Subjective/Interval History
-
Ms Hayward was feeling better this morning. She reported no episodes on nausea since yesterday afternoon and was able to drink clear liquids. She was also able to take some PO medications. She reported no headaches and did not require any PRNs. Date
of Service: May 29, 2025
Objective Data
-
Labs:
Laboratory Results
05/29/25
06:45
WBC 6.3
Hgb 12.1
Hct 35.3 L
Plt Count 179
Sodium 137
Potassium 3.6
Chloride 105
Carbon Dioxide 22
BUN 10
Creatinine 0.5 L
Glucose 81
Calcium 9.4
Vital Signs:
Vital Signs
Temp Pulse Resp BP Pulse Ox
98.4 F 75 14 115/64 96
05/29/25 11:30 05/29/25 11:30 05/29/25 11:30 05/29/25 11:30 05/29/25 11:30
I&O
05/28/25 05/29/25 05/30/25
06:59 06:59 06:59
Intake Total 1919
Balance 1919
Review of Systems
-
History Source: Patient
Constitutional: Reports No Symptoms; Denies Fever or Fatigue
EENT: Reports Sore Throat; Denies Runny Nose
Respiratory: Reports No Symptoms; Denies Cough or Trouble Breathing
Cardiac: Reports No Symptoms; Denies Chest Pain or Palpitations
Abdomen/GI: Reports No Symptoms; Denies Abdominal Pain, Nausea, Vomiting or Diarrhea
Musculoskeletal: Reports No Symptoms
Skin: Reports No Symptoms; Denies Itching or Rash
Physical Exam
-
General: Well Developed, Well Nourished, No Apparent Distress and Comfortable
HEENT: Normocephalic and Atraumatic
Respiratory: Clear to Auscultation; Negative Wheezes or Crackles
Cardiac: Regular Rhythm and S1/S2; Negative Murmur or Rub
GI: Soft, Nontender, Nondistended and Normal Bowel Sounds
Musculoskeletal: No Clubbing, No Cyanosis and No Edema
Skin: Warm and Dry
Neuro: Awake, Alert and Oriented
--- NOTE | 2025-05-29 15:12 | CM ---
Patient seen at bedside with physicians on . Patient asking to go home after she trials solid food. Physician aware. Patient does not have MC. Patient family for transportation home and no need for VN at this time. CM will continue to follow
for discharge planning needs.
Plan; home with family supports
[2025-05-29 15:25] VITALS: BP 123/73
--- NOTE | 2025-05-29 15:50 | W.DCSUMMARY ---
Addendum entered and electronically signed by Kate Oliveira MD 05/29/25 19:01:
Read, reviewed, and agree. See same day progress note for additional details. Time spent coordinating care, DC planning, review of DC plan of care with resident, transition of care, review of records in EMR, med rec, consults, notes, d/w
consultants, nursing, family, and CM = 34 minutes
Original Note:
Discharge Summary
Discharge Data
Date of Admission: 05/26/25
Date of Discharge: 05/29/25
-
Pending Results: No
Hospital Course
Discharging Physician : Dr. Oliveira, Dr. Fernandes
Disposition : Home
Primary care physician : LITZY Castellon
Principal Discharge diagnosis :
High anion gap metabolic acidosis
metabolic alkalosis
respiratory alkalosis
Chronic Discharge diagnosis :
Hyperlipidemia
hypothyroid with thyroid nodules
chronic cough
Hospital Course :
Ms. Hayward is a 65-year-old female, with past medical history significant for hyperlipidemia, hypothyroidism with thyroid nodule, chronic cough who had been using Zepbound for weight loss. Initially she was also on 2.5 mg dose for 8 weeks which she
tolerated well, but she plateaued and called to increase the dose, she took first dose of 5 mg without any issues but after receiving the second dose on May 23, 2025 she started to feel nauseated. After that, she did not had any appetite and felt
nauseated and had multiple episodes of vomiting. Patient vomited all day on Tuesday and was not able to keep anything down. The next day, she felt very weak, tired, and was feeling dizzy whenever she tried to get up along with body aches and
pains.
She came to the ER and was found to be acidotic and dehydrated. Labs reveal a severe metabolic acidosis with a bicarb of 7. Lactate 3.6. She had an anion gap metabolic acidosis with a anion gap of 33 in the ER, she tested positive for
beta-hydroxybutyrate and urinary ketones. Her creatine was also elevated at 1.1 on admission elevated from her baseline of 0.6, which resolved the next day 05/27. She had volume contraction with metabolic alkalosis and was treated with IV fluids and
bicarb infusion, PPI, antiemetics.
Over her stay her bicarbonate improved, her lactic acid improved, and her anion gap closed to within normal limits. She complained of nausea and burning in her throat that kept her from taking anything by mouth. GI was consulted to help with these
symptoms and they recommended continuing with anti nausea meds and anti acid medication. They also ordered an abdominal US to rule out acute processes, US had benign findings. Her symptoms improved slowly and she was able to tolerate oral intake.
All her labs returned to within normal limits and patient felt much better. She is medically stable for discharge.
Important imaging findings :
Chest xray 05/26
IMPRESSION:
No acute cardiopulmonary process.
Abdominal ultrasound 05/29
IMPRESSION: Single mobile large gallstone. No secondary findings to suggest acute cholecystitis.
Procedure findings :
n/a
Discharge Plan
-
Patient Disposition: Home (Routine Discharge)
Discharge Diagnosis/Procedures: anion gap metabolic acidosis, metabolic alkalosis, respiratory alkalosis, acute kidney injury, hypercalcemia, hypokalemia, hyperlipidemia, hypothyroid
Condition: Good
Diet: As tolerated
Activity: No restrictions
Driving Restrictions: As prior to admission
Bathing Restrictions: None
Referrals:
Pasquale Escamilla CRNP [Family Provider, Family Practice] - in less than 1 week
Prescriptions:
Continued
rosuvastatin 20 MG tablet
20 mg PO QPM
levothyroxine [Synthroid] 25 mcg Tablet
25 mcg PO DAILY
amitriptyline 10 mg Tablet
10 mg PO HS
gabapentin 300 mg Capsule
300 mg PO TID
Discharge Orders:
Discharge Patient (As Directed); Ordered 05/29/25
Ordered By: Xiomara Fernandes
Discharge Date and Time
Discharge Date/Time: 05/29/25 16:00
Print Language: PORTUGUESE
== END 2025-05-29 16:00 | disposition home or self-care (01) | DRG 683 ==
LOC: 4 EAST ACU 17:31
PROVIDERS: Physician Assistant; Student in an Organized Health Care Education/Training Program; ADMITTING PHYSICIAN Internal Medicine; CONSULT PHYSICIAN Internal Medicine; EMERGENCY PHYSICIAN Emergency Medicine; FAMILY PHYSICIAN Nurse Practitioner Family
DX: N17.9 Acute kidney failure, unspecified (principal); E87.20 Acidosis, unspecified; E87.4 Mixed disorder of acid-base balance; E86.0 Dehydration; E83.52 Hypercalcemia; E03.9 Hypothyroidism, unspecified; E04.2 Nontoxic multinodular goiter; K21.9 Gastro-esophageal reflux disease without esophagitis; K31.84 Gastroparesis; E87.6 Hypokalemia; E78.00 Pure hypercholesterolemia, unspecified
CPT/HCPCS: 71046; 76700; 80048; 80053; 80143; 80179; 81003; 81015; 82010; 82805; 82962; 83036; 83605; 83690; 83735; 83930; 83935; 84439; 84443; 84484; 85025; 85027; 87040; 87086; 93005; 96361; 96374; 96375; 99285

== ENCOUNTER → 2025-06-28 16:23 | Outpatient (REF) | payer BC, SELFPAY | LOC: HWRAD 16:23 | PROVIDERS: ATTENDING PHYSICIAN Nurse Practitioner Family | DX: R55 Syncope and collapse (principal) | CPT/HCPCS: 71101 ==

== ENCOUNTER → 2025-07-30 18:26 | Outpatient (REF) | payer BC, SELFPAY | LOC: MRI 18:26 | PROVIDERS: ATTENDING PHYSICIAN Nurse Practitioner Family | DX: R55 Syncope and collapse (principal) | CPT/HCPCS: 70553; A9575 ==

== ENCOUNTER → 2025-08-02 07:16 | Outpatient (REF) | payer BC, SELFPAY | LOC: RCS 07:16 | PROVIDERS: ATTENDING PHYSICIAN Nurse Practitioner Family | DX: R55 Syncope and collapse (principal) | CPT/HCPCS: 93306 ==

== ENCOUNTER → 2025-08-27 08:27 | Outpatient (REF) | payer BC, SELFPAY | LOC: HWWDC 08:27 | PROVIDERS: ATTENDING PHYSICIAN Nurse Practitioner Family | DX: Z12.31 Encounter for screening mammogram for malignant neoplasm of breast (principal) | CPT/HCPCS: 77063; 77067 ==

== ENCOUNTER → 2025-09-11 09:44 | Outpatient (REF) | payer BC, SELFPAY | LOC: HWRAD 09:44 | PROVIDERS: ATTENDING PHYSICIAN Nurse Practitioner Family | DX: R10.819 Abdominal tenderness, unspecified site (principal) | CPT/HCPCS: 76770 ==